=== PATIENT | female | born 1975 | race Caucasian/White ===

== ENCOUNTER 2018-05-31 00:32 | Emergency (ER) | payer MEDICAID ==
[~2018-05-31] VITALS: Ht 144.8 cm; Wt 57.6 kg
[2018-05-31 00:44] VITALS: Ht 144.8 cm; Wt 57.6 kg
[2018-05-31 01:30] LABS: BASOPHIL % 0.6 % (0-2); PLATELET COUNT 367 x10^3mcL (130-400); RED CELL DISTRIBUTION WIDTH 12.1 % (11.5-14.5)
[2018-05-31 01:43] LABS: CALCIUM 8.8 mg/dL (8.5-10.1); CARBON DIOXIDE 27.6 mmol/L (21-32); CHLORIDE SERUM 104 mmol/L (98-107); CREATININE SERUM 0.7 mg/dL (0.6-1.0); GFR1 > 60 mL/min; GLUCOSE SERUM 86 mg/dL (74-106); POTASSIUM SERUM 3.3 mmol/L (3.5-5.1); SODIUM SERUM 141 mmol/L (136-145)
[2018-05-31 01:48] LABS: ALBUMIN 3.8 g/dL (3.4-5.0); ALKALINE PHOSPHATASE 36 U/L (46-116); ALT/SGPT 31 U/L (14-59); AST/SGOT 15 U/L (15-37); BILIRUBIN TOTAL 0.29 mg/dL (0.20-1.00); LIPASE 189 IU/L (73-393); TOTAL PROTEIN, SERUM 7.8 g/dL (6.4-8.2)
[2018-05-31 02:23] VITALS: BP 136/78
== END 2018-05-31 02:23 | disposition home or self-care (01) ==
LOC: ED 00:32
PROVIDERS: Emergency Medicine
DX: K59.00 Constipation, unspecified (principal); Z98.890 Other specified postprocedural states
CPT/HCPCS: 36415

== ENCOUNTER 2018-06-03 01:27 | Emergency (ER) | payer MEDICAID ==
[~2018-06-03] VITALS: Ht 157.5 cm; Wt 59.4 kg
[2018-06-03 01:31] VITALS: Ht 157.5 cm; Wt 59.4 kg
[2018-06-03 02:38] LABS: CALCIUM 8.9 mg/dL (8.5-10.1); CARBON DIOXIDE 29.7 mmol/L (21-32); CHLORIDE SERUM 106 mmol/L (98-107); CREATININE SERUM 0.8 mg/dL (0.6-1.0); GFR1 > 60 mL/min; GLUCOSE SERUM 90 mg/dL (74-106); POTASSIUM SERUM 3.2 mmol/L (3.5-5.1); SODIUM SERUM 143 mmol/L (136-145)
[2018-06-03 02:42] LABS: ALBUMIN 3.6 g/dL (3.4-5.0); ALKALINE PHOSPHATASE 39 U/L (46-116); ALT/SGPT 27 U/L (14-59); AST/SGOT 11 U/L (15-37); BILIRUBIN TOTAL 0.17 mg/dL (0.20-1.00); LIPASE 272 IU/L (73-393); TOTAL PROTEIN, SERUM 7.2 g/dL (6.4-8.2)
[2018-06-03 02:43] LABS: BASOPHIL % 0.8 % (0-2); PLATELET COUNT 331 x10^3mcL (130-400); RED CELL DISTRIBUTION WIDTH 12.2 % (11.5-14.5)
[2018-06-03 02:44] LABS: microscopic required? YES; urine erythrocyte 2+ (NEGATIVE)
[2018-06-03 03:59] VITALS: BP 140/78
== END 2018-06-03 03:59 | disposition home or self-care (01) ==
LOC: ED 01:27
PROVIDERS: Emergency Medicine
DX: K59.00 Constipation, unspecified (principal); Z98.890 Other specified postprocedural states
CPT/HCPCS: J1885; Q0092; Q9967

== ENCOUNTER 2018-06-27 22:01 | Emergency (ER) | payer MEDICAID ==
[~2018-06-27] VITALS: Ht 147.3 cm; Wt 59.0 kg
[2018-06-27 22:08] VITALS: BP 129/87; Ht 147.3 cm; Wt 59.0 kg
== END 2018-06-28 01:41 | disposition home or self-care (01) ==
LOC: ED 22:01
DX: S63.501A Unspecified sprain of right wrist, initial encounter (principal); W18.30XA Fall on same level, unspecified, initial encounter; Y93.89 Activity, other specified; Y92.89 Other specified places as the place of occurrence of the external cause; Y99.8 Other external cause status

== ENCOUNTER 2018-09-24 20:37 | Emergency (ER) | payer MEDICAID ==
[~2018-09-24] VITALS: Ht 149.9 cm; Wt 58.5 kg
[2018-09-24 21:11] VITALS: Ht 149.9 cm; Wt 58.5 kg
[2018-09-24 23:27] VITALS: BP 141/71
== END 2018-09-24 23:27 | disposition home or self-care (01) ==
LOC: ED 20:37
DX: S60.042A Contusion of left ring finger without damage to nail, initial encounter (principal); Z98.890 Other specified postprocedural states; W01.0XXA Fall on same level from slipping, tripping and stumbling without subsequent striking against object, initial encounter; Y93.01 Activity, walking, marching and hiking; Y92.512 Supermarket, store or market as the place of occurrence of the external cause; Y99.8 Other external cause status
CPT/HCPCS: A4570